=== PATIENT | male | born 1955 | race African-American/Black ===

== ENCOUNTER 2024-03-03 11:58 | Emergency (ER) | payer OTHER ==
[2024-03-03] MEDS ORDERED: Ibuprofen 200 MG TAB ONE (14:24)
== END 2024-03-03 16:27 | disposition home or self-care (01) ==
LOC: ERS 11:58
DX: M54.50 Low back pain, unspecified (principal); M25.552 Pain in left hip; M25.551 Pain in right hip; V89.2XXA Person injured in unspecified motor-vehicle accident, traffic, initial encounter
CPT/HCPCS: 72100